=== PATIENT | female | born 1965 | race Two or more races ===

== ENCOUNTER 2020-08-04 23:01 | Outpatient (CLI) | payer OTHER | END 2020-08-04 23:02 | disposition home or self-care (01) | LOC: PPH VACUNA 23:01 | DX: Z23 Encounter for immunization (principal) ==

== ENCOUNTER 2020-08-26 06:00 | Outpatient (CLI) | payer OTHER | END 2020-08-26 06:01 | disposition home or self-care (01) | LOC: PPH VACUNA 06:00 | DX: Z23 Encounter for immunization (principal) ==

== ENCOUNTER 2021-04-09 09:00 | Outpatient (CLI) | payer OTHER | END 2021-04-09 09:30 | disposition home or self-care (01) | LOC: PPH VACUNA 09:00 | PROVIDERS: ATTEND Emergency Medicine Pediatric Emergency Medicine | DX: Z23 Encounter for immunization (principal) ==